=== PATIENT | male | born 1960 | race Caucasian/White ===

== ENCOUNTER 2016-09-22 08:40 | Day surgery (SDC) | payer OTHER ==
[~2016-09-22] VITALS: Ht 165.1 cm; Wt 89.0 kg
[~2016-09-22 08:40] MED LIST: ADV50050 INH; BP MEDS; CARV3.1260 PO; CHOLESTEROL MEDS.; IBUP-1542 PO; IPRA4AER IH; KENC1 TOP; LORA10TA3 PO; OMEP20CA16 PO; PRAV10TA43 PO; SOD CHLORIDE 0.9% 1,000 ML IV SCH; VANCOMYCIN 1 GM (PMX) 250 ML IVPB ONE
[2016-09-22 09:39] LABS: ADD SCAN DIFF NO
[2016-09-22 09:51] LABS: BASOPHILS % 0.6 % (0.0-2.0); EOSINOPHILS # 0.1 10^3/ul (0.0-0.5); EOSINOPHILS % 1.9 % (0.0-7.0); HEMATOCRIT 42.6 % (42.0-52.0); HEMOGLOBIN 14.2 g/dl (14.0-18.0); INR 1.06; LYMPHOCYTES # 1.9 10^3/ul (0.8-2.9); LYMPHOCYTES % 34.3 % (15.0-51.0); MEAN CORPUSCULAR HEMOGLOBIN 29.1 pg (29.0-33.0); MEAN CORPUSCULAR HGB CONC 33.3 g/dl (32.0-37.0); MEAN CORPUSCULAR VOLUME 87.3 fl (82.0-101.0); MEAN PLATELET VOLUME 10.1 fl (7.4-10.4); MONOCYTE # 0.6 10^3/ul (0.3-0.9); MONOCYTES % 10.4 % (0.0-11.0); NEUTROPHIL # 2.8 10^3/ul (1.6-7.5); NEUTROPHILS % 52.4 % (39.0-77.0); PLATELET COUNT 271 10^3/UL (140-415); PROTIME 13.8 Sec (12.2-14.2); PT RATIO 1.1; RED BLOOD COUNT 4.88 10^6/ul (4.70-6.10); RED CELL DISTRIBUTION WIDTH 13.4 % (11.5-14.5); WHITE BLOOD COUNT 5.4 10^3/ul (4.8-10.8)
[2016-09-22 09:53] VITALS: BP 146/80; PULSE 67; RESP 18; Ht 165.1 cm; Wt 89.0 kg
[2016-09-22 10:01] LABS: CALCIUM 9.1 mg/dl (8.4-10.2); CREATININE 0.98 mg/dl (0.61-1.24); POTASSIUM 4.2 mmol/L (3.5-5.1)
--- NOTE | 2016-09-22 10:40 | RADRPT ---
PROCEDURE: Chest Radiograph. CLINICAL INDICATION: Preop TECHNIQUE: Single frontal chest radiograph. COMPARISON: Chest radiograph 10/22/2015 FINDINGS: The cardiomediastinal silhouette is within normal limits. There is mild elevation right hemidiaphra gm. No infiltrate or effusion is seen. The bones are intact. IMPRESSION: 1. No evidence of acute cardiopulmonary disease. 2. Mild elevation right hemidiaphragm. RPTAT: AA .Sarkis Tate MD, MD Date Time Electronically viewed and signed by .Sarkis Tate MD, on 09/22/2016 10:40 .B/
[2016-09-22] MEDS ORDERED: LIDOCAINE 2% (SDV) 5 ML INJ ONE (11:01)
[2016-09-22] MEDS ORDERED: FENTAnyl 50 MCG/ML VIAL ONE (11:01)
[2016-09-22] MEDS ORDERED: ROCURONIUM 50 MG INJ ONE (11:01)
[2016-09-22] MEDS ORDERED: MIDAZOLAM 1 MG/ML 2 ML INJ ONE (11:01)
[2016-09-22] MEDS ORDERED: GLYCOPYRROLATE 0.4 MG INJ ONE (11:01)
[2016-09-22] MEDS ORDERED: PROPOFOL 20 ML ONE (11:01)
[2016-09-22] MEDS ORDERED: NEOSTIGMINE 3 MG/3 ML SYRINGE ONE (11:01)
[2016-09-22] MEDS ORDERED: ONDANSETRON 4 MG INJ ONE (11:03)
[2016-09-22 11:52] LABS: PARTIAL THROMBOPLASTIN TIME 34.9 Sec (25.0-35.0)
[2016-09-22 11:59] VITALS: BP 123/64; PULSE 80; RESP 17
[2016-09-22] MEDS ORDERED: morphine (1 MG/ML) 10ML SYRINGE IV PRN ×3 (12:00)
[2016-09-22] MEDS ORDERED: OXYCODONE/ACETAMINOPHEN (5/325) TAB PO PRN ×2 (12:00)
[2016-09-22] MEDS ORDERED: LABETALOL HCL 20MG INJ IV PRN (12:00)
[2016-09-22] MEDS ORDERED: EPHEDrine SULFATE 50 MG/5 ML SYG IV PRN (12:00)
[2016-09-22] MEDS ORDERED: HYDROmorphONE (0.2 MG/ML) 10ML SYG IV PRN ×3 (12:00)
[2016-09-22] MEDS ORDERED: DIPHENHYDRAMINE 50 MG INJ IV PRN (12:00)
[2016-09-22] MEDS ORDERED: MEPERIDINE 25 MG INJ IV PRN (12:00)
[2016-09-22] MEDS ORDERED: ONDANSETRON 4 MG INJ IV PRN (12:00)
[2016-09-22] MEDS ORDERED: FENTAnyl 50 MCG/ML VIAL IV PRN ×2 (12:00)
[2016-09-22] MEDS ORDERED: hydrALAzine 20 MG INJ IV PRN (12:00)
[2016-09-22] MEDS ORDERED: MIDAZOLAM 1 MG/ML 2 ML INJ IV PRN (12:00)
[2016-09-22] MEDS ORDERED: ATROPINE 1 MG/10 ML SYRINGE IV PRN (12:00)
[2016-09-22 12:04] VITALS: BP 121/72; PULSE 84; RESP 17
--- NOTE | 2016-09-22 12:13 | OPR ---
DATE OF OPERATION: 09/22/2016 PREOPERATIVE DIAGNOSIS: History of rectal cancer, and status post transanal resection of the rectal tumor. The patient now presents for surveillance, anal exam under anesthesia and rigid sigmoidoscop y. POSTOPERATIVE DIAGNOSIS: History of rectal cancer, and status post transanal resection of the recta l tumor. The patient now presents for surveillance, anal exam under anesthesia and rigid sigmoidosco py. OPERATION PERFORMED: Anal exam under anesthesia and rigid sigmoidoscopy. ANESTHESIA: General. ANESTHESIOLOGIST: Dr. Hirsch SURGEON: Dr. Dionte Mohr STONEMASON SUPERVISOR: Dr. Kerr INDICATIONS FOR PROCEDURE: The patient is known to me. I previously performed a transanal resectio n of a rectal cancer greater than 1 year ago. The patient has been followed closely for evidence of recurrence. He was counseled on the need for anal exam under anesthesia and rigid sigmoidoscopy an d he was counseled on the need for that. He consented and was scheduled. DESCRIPTION OF PROCEDURE: The patient was brought to the operating theater and placed under IV farideh tion. He was then put in the lithotomy position. The perianal region was prepped and draped in the usual sterile fashion. Initial digital exam of the anal canal did not reveal any evidence of suspi cious findings. Subsequently rigid sigmoidoscopy was performed and the entire rectum was examined. There was no evidence of recurrent disease. This concluded the procedure. The patient tolerated t he procedure well. There was no blood loss. The patient was transported in stable condition to the recovery room. Dictated By: DIONTE HALL/WILLIE Conf#: [id number] DID#: [id number]
[2016-09-22 12:26] VITALS: BP 120/62; PULSE 70; RESP 18
--- NOTE | 2016-09-22 14:46 | RADRPT ---
Vent Rate: 66 bpm RR Interval: 0 msec VT Interval: 164 msec QRS Duration: 104 msec QT Interval: 404 msec QTC Interval: 423 msec P-R-T [place]: 29 - -10 - 32 degrees Normal sinus rhythm Normal ECG Electronically Signed By: Aguilar Ohara [id number]
== END 2016-09-22 13:15 | disposition home or self-care (01) ==
LOC: SDS 08:40
PROVIDERS: ATTEND Surgery Surgical Oncology
DX: Z85.048 Personal history of other malignant neoplasm of rectum, rectosigmoid junction, and anus (principal); I10 Essential (primary) hypertension; E78.5 Hyperlipidemia, unspecified
CPT/HCPCS: 45330; 71010; 80048; 85025; 85610; 85730; 93005; J2250; J2405; J2710; J3010; J3370; Z7512; Z7610

== ENCOUNTER 2017-08-20 11:24 | Day surgery (SDC) | END 2017-08-20 15:50 | disposition home or self-care (01) ==

== ENCOUNTER 2018-09-16 14:04 | Day surgery (SDC) | payer OTHER ==
[~2018-09-16] VITALS: Ht 165.1 cm; Wt 93.3 kg
[~2018-09-16 14:04] MED LIST changes: -BP MEDS; -CHOLESTEROL MEDS.; -IBUP-1542 PO; -KENC1 TOP; -SOD CHLORIDE 0.9% 1,000 ML IV SCH; -VANCOMYCIN 1 GM (PMX) 250 ML IVPB ONE
[2018-09-16 14:49] VITALS: Ht 165.1 cm; Wt 93.3 kg
[2018-09-16 15:33] VITALS: BP 134/74; PULSE 85; RESP 12
[2018-09-16] MEDS ORDERED: MIDAZOLAM 1 MG/ML 2 ML INJ ONE ×2 (16:36)
[2018-09-16] MEDS ORDERED: FENTAnyl 50 MCG/ML VIAL ONE (16:36)
[2018-09-16 16:48] VITALS: BP 135/64; PULSE 82; RESP 20
== END 2018-09-16 17:19 | disposition home or self-care (01) ==
LOC: GIL 14:04
PROVIDERS: ATTEND Internal Medicine
DX: K64.9 Unspecified hemorrhoids (principal); Z85.048 Personal history of other malignant neoplasm of rectum, rectosigmoid junction, and anus
CPT/HCPCS: 45378; J2250; J3010; Z7610